=== PATIENT | female | born 1975 | race Caucasian/White ===

== ENCOUNTER 2017-02-10 11:05 | Emergency (ER) | payer OTHER ==
[~2017-02-10] VITALS: Ht 167.6 cm; Wt 78.0 kg
[2017-02-10 11:06] VITALS: BP 128/84
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
--- NOTE | 2017-02-10 12:14 | NUR ---
DR LOPEZ AT BEDSIDE
[2017-02-10] MEDS ORDERED: fentaNYL 0.05 MG/ML VIAL IM ONE (12:15)
--- NOTE | 2017-02-10 12:35 | NUR ---
XRAY AT BEDSIDE.
[2017-02-10 13:43] VITALS: BP 103/63
== END 2017-02-10 13:42 | disposition home or self-care (01) ==
LOC: MED 11:05
DX: S16.1XXA Strain of muscle, fascia and tendon at neck level, initial encounter (principal); M54.6 Pain in thoracic spine; R06.02 Shortness of breath; V89.2XXA Person injured in unspecified motor-vehicle accident, traffic, initial encounter; Y93.89 Activity, other specified; Y92.411 Interstate highway as the place of occurrence of the external cause; Y99.8 Other external cause status
CPT/HCPCS: 71010; 72040; 96372; 99284; J3010; Q0092